=== PATIENT | male | born 1995 | race Caucasian/White ===

== ENCOUNTER 2018-12-20 17:20 | Emergency (ER) | payer OTHER, SELFPAY ==
[2018-12-20 17:29] VITALS: BP 122/76; PULSE 69; RESP 18; TEMP 36.8; O2SAT 97; BMI 25.7
--- NOTE | 2018-12-20 17:32 | DI.RAD.S_ITS ---
PROCEDURE: XR HAND RT 2V INDICATIONS: s/p dog bite on R hand, betw 3 and 4th digit, finger web TECHNIQUE: 2 views of the hand(s) acquired. COMPARISON: None. FINDINGS: Bones: No fractures or dislocations. Carpal bones are normally aligned. No suspicious bony lesions. Slight deformity of the fifth metacarpal probably is related to a healed previous fracture. Soft tissues: No suspicious soft tissue calcifications. No radiopaque foreign bodies are evident. IMPRESSION: No acute osseous abnormality of the right hand. Dictated by: Suman Heard M.D. on 12/20/2018 at 18:53 Approved by: uSman Heard M.D. on 12/20/2018 at 18:54
--- NOTE | 2018-12-20 18:49 | ED.WOUNDLAC ---
HPI - Wound/Laceration <Hali Arriaza PA-C - Last Filed: 12/20/18 21:17> General Chief Complaint: Wound/Laceration Stated Complaint: Dog bite rt hand Time Seen by Provider: 12/20/18 18:49 Source: patient Mode of arrival: ambulatory Limitations: no limitations History of Present Illness HPI narrative: This right-handed 23-year-old male startled his elderly dog and the dog bit him on the right hand. He states that he actually only has 1 wound as the dog is missing teeth, but bruised and tender in other parts of the hand as well. He states that the dog has up-to-date vaccines. He denies any other injury. He states that the hand is sore especially with movement of the 3rd and 4th fingers, but does not feel weak or numb. 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) Review of Systems <Hali Arriaza PA-C - Last Filed: 12/20/18 21:17> Review of Systems ROS Unobtainable: All systems reviewed & are unremarkable except as noted in HPI and below PFSH <Hali Arriaza PA-C - Last Filed: 12/20/18 21:17> Medical History (Updated 12/20/18 @ 19:13 by Hali Arriaza PA-C) Seasonal allergies (Chronic) History of reduction of nasal fracture (Resolved) Surgical History (Updated 12/20/18 @ 19:13 by Hali Arriaza PA-C) History of neck surgery (Resolved) Family History (Updated 09/16/16 @ 00:00 by Conversion Provider) Grandfather Age: 65 Cancer Grandfather Age: 62 Obesity, unspecified obesity severity, unspecified obesity type Grandmother Age: 52 Cancer Social History Smoking Status: Never smoker Family History (Updated 09/16/16 @ 00:00 by Conversion Provider) Grandfather Age: 65 Cancer Grandfather Age: 62 Obesity, unspecified obesity severity, unspecified obesity type Grandmother Age: 52 Cancer Social History Smoking Status: Never smoker Exam <Hali Arriaza PA-C - Last Filed: 12/20/18 21:17> Narrative Exam Narrative: GENERAL APPEARANCE: Patient sitting comfortably, in no distress. LUNGS: Clear to auscultation bilaterally. HEART: Rate and rhythm regular without murmur, normal S1 and S2, no S3 or S4. DERMATOLOGIC: Right hand dorsum there is a small (4 mm) this linear laceration/puncture wound near the 3/4 interdigital space. 2 mm in depth. No gap. He has some patchy ecchymoses over the remainder of the hand, no other wounds NEUROVASCULAR: Right hand fingers are warm and pink with brisk cap refill, sensation grossly intact MUSCULOSKELETAL: He is fully able to flex and extend the fingers, tender with continuous improvement director. Third and 4th finger strength appears to be intact against resistance in all colvin but some giveaway in the middle finger especially resisted radial movement secondary to tenderness. Initial Vital Signs Initial Vital Signs: Vital Signs Temperature 98.2 F 12/20/18 17:29 Pulse Rate 69 12/20/18 17:29 Respiratory Rate 18 12/20/18 17:29 Blood Pressure 122/76 12/20/18 17:29 Pulse Oximetry 97 12/20/18 17:29 <Cassy Real DO - Last Filed: 12/21/18 00:27> Initial Vital Signs Initial Vital Signs: Vital Signs Temperature 98.2 F 12/20/18 17:29 Pulse Rate 69 12/20/18 17:29 Respiratory Rate 18 12/20/18 17:29 Blood Pressure 122/76 12/20/18 17:29 Pulse Oximetry 97 12/20/18 17:29 Course <Hali Arriaza PA-C - Last Filed: 12/20/18 21:17> Additional Information: First dose of Augmentin was given here. Patient agrees to pick this up when the pharmacy opens in the morning and continue it. Advised ibuprofen. Discussed importance of follow-up with PCP in the next day or so as acute pain and swelling improved so that tendon strength can be reassessed and he is agreeable Orders Ordered: ED Orders 12/20/18 17:32 XR hand RT 2V Stat Discontinued Medications Amoxicillin/Clavulanate Potassium (Augmentin 875-125 Mg) 1 tab PO NOW ONE Stop: 12/20/18 19:03 Last Admin: 12/20/18 19:08 Dose: 1 tab Diphtheria/Tetanus/Acell Pertussis (Adacel) 0.5 ml IM .ONCE ONE Stop: 12/20/18 18:18 Last Admin: 12/20/18 18:53 Dose: 0.5 ml Ibuprofen (Advil) 800 mg PO NOW ONE Stop: 12/20/18 19:03 Last Admin: 12/20/18 19:17 Dose: Not Given Vital Signs - 8 hr 12/20/18 17:29 12/20/18 19:23 Temperature 98.2 F 98.1 F Pulse Rate 69 58 L Respiratory Rate 18 18 Blood Pressure 122/76 131/71 Pulse Oximetry 97 100 <Cassy Real DO - Last Filed: 12/21/18 00:27> Orders Ordered: ED Orders 12/20/18 17:32 XR hand RT 2V Stat Discontinued Medications Amoxicillin/Clavulanate Potassium (Augmentin 875-125 Mg) 1 tab PO NOW ONE Stop: 12/20/18 19:03 Last Admin: 12/20/18 19:08 Dose: 1 tab Diphtheria/Tetanus/Acell Pertussis (Adacel) 0.5 ml IM .ONCE ONE Stop: 12/20/18 18:18 Last Admin: 12/20/18 18:53 Dose: 0.5 ml Ibuprofen (Advil) 800 mg PO NOW ONE Stop: 12/20/18 19:03 Last Admin: 12/20/18 19:17 Dose: Not Given Vital Signs - 8 hr 12/20/18 17:29 12/20/18 19:23 Temperature 98.2 F 98.1 F Pulse Rate 69 58 L Respiratory Rate 18 18 Blood Pressure 122/76 131/71 Pulse Oximetry 97 100 Discharge Plan Departure Patient Disposition: Home Clinical Impression: Dog bite Qualifiers: Encounter type: initial encounter Qualified Code(s): W54.0XXA - Bitten by dog, initial encounter Discharge Date/Time: 12/20/18 19:25 Interventions: ED Discharge Assessment Last Done: 12/20/18 19:23 Instructions: DI for Dog Bite Activity Restrictions/Additional Instructions: Please potato picker the antibiotic 1st thing in the morning in the pharmacy opens and take the 2nd dose (take every 12 hours). I have sent the prescription to [facility] for you. Take ibuprofen, 800 mg every 8 hours to help with pain and swelling and you can add Tylenol as needed. You can also use a compression wrap as needed for pain. As we talked about, you should monitor for any signs of acutely worsening infection such as acutely worsening pain or swelling, fever, streaking redness on her hand or arm, and return here or see your PCP right away if any. From what I can see today on exam, your hand and tendon strength appears to be intact, but difficult for you to fully move due to pain, so as we discussed it is important to have this rechecked with your PCP in a couple of days when the acute swelling and pain or better to recheck your hand mobility. Prescriptions: New amoxicillin-pot clavulanate [Augmentin] 875-125 mg tablet 1 tab PO Q12H Qty: 14 RF: 0 Referrals: Waldemar Sutton MD [Primary Care Provider] - <Cassy Real DO - Last Filed: 12/21/18 00:27> Cosign ED Attending Chadwickature Attestation: I was immediately available in the department for consultation. Documentation has been reviewed. I agree with assessment and plan.
[2018-12-20] MEDS: TET,DIPH,PERTUSS(ACELL),VAC/PF 0.5 ML SYRINGE IM (18:53)
[2018-12-20] MEDS: AMOXICILLIN/CLAV 875/125 MG 1 TAB PO (19:08)
[2018-12-20 19:23] VITALS: BP 131/71; PULSE 58; RESP 18; TEMP 36.7; O2SAT 100
== END 2018-12-20 19:25 | disposition home or self-care (01) ==
PROVIDERS: Emergency Provider Internal Medicine; PCP Family Medicine
DX: S60.571A Other superficial bite of hand of right hand, initial encounter (principal); W54.0XXA Bitten by dog, initial encounter; Z23 Encounter for immunization
CPT/HCPCS: 73120; 90471; 99283; 90715